=== PATIENT | male | born 1995 | race Caucasian/White ===

== ENCOUNTER 2021-05-10 20:46 | Inpatient (IN) | payer SELFPAY ==
[2021-05-10 21:05] VITALS: BMI 37.0
[2021-05-10 21:26] LABS: BASO % 0.7 % (0-2.0); EOS % 2.6 % (0-4.5); HEMATOCRIT 43.5 % (35.4-49); HEMOGLOBIN 15.2 GM/dL (11.7-16.9); LYMPH % 34.9 % (8-40); MCH 31.9 pg (25.7-33.7); MCHC 35.1 g/dl (32.0-35.9); MEAN PLT VOLUME 7.6 fl (7.5-11.1); MONO % 5.4 % (3.8-10.2); NEUT % 56.4 % (42.8-82.8); PLATELET COUNT 256 10^3/uL (134-434); RBC 4.78 M/mm3 (4.00-5.60); RDW 12.9 % (11.9-15.9); WHITE BLOOD COUNT 8.3 K/mm3 (4.0-10.0)
[2021-05-10 21:35] LABS: PROTHROMBIN TIME (PATIENT) 12.1 SEC (9.7-13.0)
[2021-05-10 21:38] LABS: ACTIVATED PTT 31.1 SECONDS (25.2-36.5)
[2021-05-10 21:44] LABS: CHLORIDE 96 mmol/L (98-107); SODIUM 134 mmol/L (136-145)
[2021-05-10 21:47] LABS: CALCIUM 8.9 mg/dL (8.5-10.1)
[2021-05-10] MEDS ORDERED: LACTATED RINGERS SOLUTION 1000 ML INFUS.BAG IV ONE ×2 (21:47→23:59)
[2021-05-10] MEDS ORDERED: MAG HYDROX/AL HYDROX/SIMETH 30 ML UNIT-DOSE CUP PO ONE (21:47)
[2021-05-10] MEDS ORDERED: METOCLOPRAMIDE HCL INJECTION 10 MG/2 ML VIAL IVPUSH ONE (21:47)
[2021-05-10 21:48] LABS: ALBUMIN 4.1 g/dl (3.4-5.0); ANION GAP 11 MMOL/L (8-16); BLOOD UREA NITROGEN 8.4 mg/dL (7-18); CO2 28 mmol/L (21-32)
[2021-05-10] MEDS ORDERED: FAMOTIDINE 20 MG/50 ML IVPB 20 MG/50 ML MG IVPB ONE ×2 (21:48→22:29)
[2021-05-10 21:49] LABS: GLUCOSE,RANDOM 383 mg/dL (74-106)
[2021-05-10 21:51] LABS: SGOT/AST 143 U/L (15-37); SGPT/ALT 358 U/L (13-61)
[2021-05-10 21:52] LABS: ALK PHOS 179 U/L (45-117); BILIRUBIN,TOTAL 0.4 mg/dL (0.2-1)
[2021-05-10 21:53] LABS: TOT PROT 8.4 g/dl (6.4-8.2)
[2021-05-10 21:59] LABS: VENOUS BASE EXCESS -3.8 mmol/L (-2-2); VENOUS O2 SATURATION 64.9 % (70-80); VENOUS PCO2 36.3 mmHg (38-52); VENOUS PH 7.375 (7.310-7.410)
[2021-05-10 22:09] LABS: LIPASE 154 U/L (73-393)
[2021-05-10] MEDS ORDERED: METOCLOPRAMIDE HCL INJECTION 10 MG/2 ML VIAL ONE (22:29)
[2021-05-10] MEDS ORDERED: MAG HYDROX/AL HYDROX/SIMETH 30 ML UNIT-DOSE CUP ONE (22:29)
[2021-05-11 01:35] LABS: CALCIUM 8.8 mg/dL (8.5-10.1)
[2021-05-11 01:36] LABS: ALBUMIN 3.3 g/dl (3.4-5.0); BLOOD UREA NITROGEN 8.4 mg/dL (7-18)
[2021-05-11 01:39] LABS: CREATININE 0.9 mg/dL (0.55-1.3)
[2021-05-11 01:41] LABS: BILIRUBIN,TOTAL 0.4 mg/dL (0.2-1); TOT PROT 6.9 g/dl (6.4-8.2)
[2021-05-11] MEDS ORDERED: INSULIN REGULAR HUMAN 100 UNITS/ML *VIAL SQ ONE (03:53)
[2021-05-11] MEDS ORDERED: INSULIN SLIDING SCALE (NOVOLOG) 1 VIAL SQ SCH (07:00)
[2021-05-11] MEDS ORDERED: ENOXAPARIN NA (PORCINE) 40 MG/0.4 ML DISP.SYRIN SQ SCH (10:00)
[2021-05-11] MEDS ORDERED: NICOTINE 7 MG/24 HOURS TOPICAL PATCH TD SCH (10:00)
[2021-05-11 10:49] LABS: URINE APPEARANCE SL CLOUDY; URINE BILIRUBIN NEGATIVE (NEGATIVE); URINE COLOR YELLOW; URINE GLUCOSE (UA) 3+ (NEGATIVE); URINE KETONE NEGATIVE (NEGATIVE)
[2021-05-11 10:50] LABS: URINE LEUK ESTERASE NEGATIVE (NEGATIVE); URINE NITRITE NEGATIVE (NEGATIVE); URINE PROTEIN NEGATIVE (NEGATIVE); URINE UROBILINOGEN 0.2 mg/dL (0.2-1.0)
[2021-05-11 11:28] LABS: EPI CELLS 1.1 /uL (0-25.1); HYALINE CASTS 0.12 /uL (0-3.1); URINE BACTERIA 74.4 /uL (0-1359); URINE RBC 7.9 /uL (0-23.9); URINE WBC 4.3 /uL (0-25.8)
[2021-05-11 12:48] LABS: CALCIUM 9.6 mg/dL (8.5-10.1)
[2021-05-11 12:49] LABS: BLOOD UREA NITROGEN 6.6 mg/dL (7-18); MAGNESIUM 1.9 mg/dL (1.8-2.4)
[2021-05-11 12:52] LABS: CREATININE 0.8 mg/dL (0.55-1.3); PHOSPHOROUS 3.6 mg/dL (2.5-4.9)
[2021-05-11 12:53] LABS: BILIRUBIN,TOTAL 0.5 mg/dL (0.2-1)
[2021-05-11 12:54] LABS: TOT PROT 8.4 g/dl (6.4-8.2)
[2021-05-11 12:56] LABS: ALBUMIN 4.1 g/dl (3.4-5.0)
[2021-05-11 14:12] VITALS: BP 130/70; PULSE 16; TEMP 98.1
[2021-05-11] MEDS ORDERED: metFORMIN HCL 500 MG TABLET (FP) PO SCH (16:30)
== END 2021-05-11 14:12 | disposition home or self-care (01) | DRG 420 ==
LOC: JER 20:46 → JERBED 05-11 03:50
PROVIDERS: ADMIT Internal Medicine
DX: E11.65 Type 2 diabetes mellitus with hyperglycemia (principal); R07.89 Other chest pain; K76.0 Fatty (change of) liver, not elsewhere classified; R11.2 Nausea with vomiting, unspecified; R10.13 Epigastric pain; H53.8 Other visual disturbances; F10.10 Alcohol abuse, uncomplicated; F17.200 Nicotine dependence, unspecified, uncomplicated; E66.9 Obesity, unspecified; Z68.37 Body mass index [BMI] 37.0-37.9, adult; I10 Essential (primary) hypertension; R42 Dizziness and giddiness; R00.0 Tachycardia, unspecified; R16.0 Hepatomegaly, not elsewhere classified; K70.9 Alcoholic liver disease, unspecified
CPT/HCPCS: 36415; 71046-TC-FY; 76705-TC; 80053; 80061; 81003; 82550; 82553; 82570; 82803; 82962; 83690; 83735; 84100; 84156; 84443; 84484; 85025; 85610; 85730; 86705; 86706; 86708; 86803; 87340; 87517; 93005; 93010; 99285-25; C9803; U0003; U0005

== ENCOUNTER 2022-02-19 14:43 | Emergency (ER) | payer OTHER ==
[2022-02-19 14:57] VITALS: BP 142/96; PULSE 113; RESP 18; TEMP 98.1; BMI 33.0
[2022-02-19] MEDS ORDERED: DIPHTH,PERTUSS(ACELL),TET 0.5 ML DISP.SYRIN IM ONE ×2 (15:45→15:50)
[2022-02-19] MEDS ORDERED: BACITRACIN 15 GM TUBE TOPICAL OINTMENT TP ONE (15:45)
[2022-02-19] MEDS ORDERED: BACITRACIN 15 GM TUBE TOPICAL OINTMENT ONE (15:50)
== END 2022-02-19 17:02 | disposition home or self-care (01) ==
LOC: JERFT 14:43
PROC: 0CQ03ZZ Repair Upper Lip, Percutaneous Approach (ICD-10-PCS; principal; 2022-02-19)
PROC: 3E0234Z Introduction of Serum, Toxoid and Vaccine into Muscle, Percutaneous Approach (ICD-10-PCS; 2022-02-19)
DX: T07.XXXA Unspecified multiple injuries, initial encounter (principal); S01.511A Laceration without foreign body of lip, initial encounter; M25.572 Pain in left ankle and joints of left foot; V19.9XXA Pedal cyclist (driver) (passenger) injured in unspecified traffic accident, initial encounter; Y92.9 Unspecified place or not applicable
CPT/HCPCS: 73610-TC-LT-FY; 73630-TC-LT; 90715; 99284-25